=== PATIENT | female | born 1995 | race Caucasian/White ===

== ENCOUNTER 2017-01-11 02:31 | Emergency (ER) | payer BC ==
[~2017-01-11] VITALS: Ht 165.1 cm; Wt 77.4 kg
[~2017-01-11 02:31] MED LIST: NOHOMEMEDS
[2017-01-11 03:08] LABS: MCH 29.8 PG (29.0-34.0); MCHC 35.1 G/DL (30.0-36.0); MEAN PLAT.VOLUME 10.6 uM^3 (9.5-12.4); PLATELET COUNT 343 K/uL (156-360); RBC DIS.WIDTH-SD 37.2 % (39-53); RED BLOOD COUNT 4.59 M/uL (3.80-5.20); WHITE BLOOD COUNT 7.9 K/uL (4.1-10.2)
[2017-01-11 03:18] LABS: CHLORIDE 106 mEq/L (99-109); SODIUM 141 mEq/L (136-147)
[2017-01-11 03:21] LABS: GLUCOSE 108 mg/dL (70-99)
[2017-01-11 03:22] LABS: ANION GAP 8 MEQ/L (2-14)
[2017-01-11 03:23] LABS: TOTAL BILIRUBIN 0.3 mg/dL (0.0-1.0)
[2017-01-11 03:24] LABS: ALKALINE PHOSPHATASE 56 IU/L (3-129); GFR ESTIMATE (CALCULATED) > 59 mL/min/
[2017-01-11 03:25] LABS: UREA NITROGEN (BUN) 12 mg/dL (9-23)
[2017-01-11 03:36] LABS: QUANTITATIVE HCG < 4.0 MIU/ML
[2017-01-11 03:49] LABS: ADD MIUA? YES; BILIRUBIN NEGATIVE; BLOOD NEGATIVE; COLOR YELLOW ((YELLOW)); GLUCOSE (STRIP) NEGATIVE; KETONES NEGATIVE; LEUKOCYTES TRACE; NITRITE NEGATIVE; PROTEIN (STRIP) 30; SPECIFIC GRAVITY 1.016 (1.000-1.030); UROBILINOGEN 0.2 MG/DL (0.2-1.0)
[2017-01-11 04:13] LABS: RED BLOOD CELLS NONE SEEN /HPF (0-5); WHITE BLOOD CELLS 0-5 /HPF (0-5)
[2017-01-11 04:14] LABS: AMORPHOUS PHOSPHATE CRYSTALS 3+; BACTERIA NONE SEEN /HPF; CASTS NONE SEEN /LPF; CRYSTALS PRESENT; EPITHELIAL CELLS 2+ /HPF; MUCUS NONE SEEN /LPF; UCUL ADDED? NO
[2017-01-11] MEDS ORDERED: ZANTAC150 MG PO (05:40)
[2017-01-11 06:14] VITALS: BP 137/74
== END 2017-01-11 06:15 | disposition home or self-care (01) ==
LOC: EME 02:31
DX: R10.11 Right upper quadrant pain (principal); K29.70 Gastritis, unspecified, without bleeding; F17.200 Nicotine dependence, unspecified, uncomplicated
CPT/HCPCS: 80053; 81003; 84702; 85027; 99281; 99284

== ENCOUNTER 2018-05-08 01:48 | Emergency (ER) | payer SELFPAY ==
[~2018-05-08] VITALS: Ht 165.1 cm; Wt 86.8 kg
[~2018-05-08 01:48] MED LIST changes: +ZANTAC150 MG PO
[2018-05-08 02:49] LABS: BASOPHIL (%) 0.5 % (0-1); EOSINOPHIL (%) 1.2 % (0-5); EOSINOPHIL COUNT 0.1 K/uL (0-0.3); HEMATOCRIT 38.2 % (36.0-46.0); HEMOGLOBIN 13.5 G/DL (11.9-15.5); IMMATURE GRANULOCYTE (%) 0.1 % (0.0-0.7); LYMPHOCYTE (%) 32.4 % (15-42); LYMPHOCYTE COUNT 2.4 K/uL (1.0-2.8); MCH 29.3 PG (29.0-34.0); MCHC 35.3 G/DL (30.0-36.0); MONOCYTE (%) 6.7 % (3-12); MONOCYTE COUNT 0.5 K/uL (0-0.8); NEUTROPHIL (%) 59.1 % (45-76); NEUTROPHIL COUNT 4.4 K/uL (1.8-6.4); PLATELET COUNT 337 K/uL (156-360); RBC DIS.WIDTH-CV 12.2 % (11.8-14.6); RBC DIS.WIDTH-SD 37.2 % (39-53); WHITE BLOOD COUNT 7.4 K/uL (4.1-10.2)
[2018-05-08 02:58] LABS: CHLORIDE 105 mEq/L (99-109); POTASSIUM 4.1 mEq/L (3.7-5.4); SODIUM 140 mEq/L (136-147)
[2018-05-08 03:01] LABS: GLUCOSE 92 mg/dL (70-99); TOTAL PROTEIN 6.8 g/dL (6.4-8.3)
[2018-05-08 03:02] LABS: TOTAL BILIRUBIN 0.3 mg/dL (0.0-1.0)
[2018-05-08 03:04] LABS: ALKALINE PHOSPHATASE 82 IU/L (3-129); CREATININE 0.9 mg/dL (0.6-1.3); GFR ESTIMATE (CALCULATED) > 59 mL/min/
[2018-05-08 03:05] LABS: UREA NITROGEN (BUN) 13 mg/dL (9-23)
[2018-05-08 03:06] LABS: AST (GOT) 14 IU/L (2-34); DIRECT BILIRUBIN 0.1 mg/dL (0.0-0.3)
[2018-05-08 03:07] LABS: ALT (GPT) 33 IU/L (3-49)
[2018-05-08 03:08] LABS: LIPASE 24 U/L (1.0-51.0)
[2018-05-08 03:10] LABS: QUANTITATIVE HCG < 4.0 MIU/ML
[2018-05-08 03:27] LABS: APPEARANCE CLEAR ((CLEAR)); BILIRUBIN NEGATIVE; BLOOD NEGATIVE; COLOR STRAW ((YELLOW)); GLUCOSE (STRIP) NEGATIVE; KETONES NEGATIVE; LEUKOCYTES MODERATE; NITRITE NEGATIVE; PROTEIN (STRIP) NEGATIVE; SPECIFIC GRAVITY 1.009 (1.000-1.030); UROBILINOGEN 0.2 MG/DL (0.2-1.0)
[2018-05-08 03:30] LABS: BACTERIA NONE SEEN /HPF; EPITHELIAL CELLS 2+ /HPF; MUCUS TRACE /LPF; RED BLOOD CELLS 0-5 /HPF (0-5); UCUL ADDED? NO; WHITE BLOOD CELLS 0-5 /HPF (0-5)
[2018-05-08] MEDS ORDERED: PEPCID20 MG PO (03:38)
[2018-05-08 03:54] VITALS: BP 153/88
== END 2018-05-08 03:55 | disposition home or self-care (01) ==
LOC: EME 01:48
PROVIDERS: Emergency Medicine
DX: K21.9 Gastro-esophageal reflux disease without esophagitis (principal); Z88.0 Allergy status to penicillin; Z88.6 Allergy status to analgesic agent; Z87.891 Personal history of nicotine dependence
CPT/HCPCS: 71046; 76705; 80048; 80076; 81003; 83690; 84702; 85025; 93005; 99281; 99285